=== PATIENT | female | born 1975 | race Hispanic/Latino ===

== ENCOUNTER 2017-10-17 01:53 | Inpatient (IN) | payer SELFPAY ==
[~2017-10-17] VITALS: Ht 165.1 cm; Wt 59.0 kg
[~2017-10-17 01:53] MED LIST: PNV91TAB3 PO
[2017-10-17] MEDS ORDERED: fentaNYL INJECTION 100 MCG/2 ML AMP ONE (02:08)
[2017-10-17] MEDS ORDERED: ONDANSETRON 4 MG/2 ML (SDV) Z0FRAN ONE (02:08)
[2017-10-17 02:11] LABS: BASOPHILS % (AUTO) 0 % (0-10); EOSINOPHILS % (AUTO) 1 % (0-10); LYMPHOCYTES # (AUTO) 0.3 X 10^3 (1.0-4.0); LYMPHOCYTES % (AUTO) 8 % (12-44); MEAN CORPUSCULAR HEMOGLOBIN 29 PG (25-34); MEAN CORPUSCULAR HGB CONC 34 G/DL (32-36); MEAN CORPUSCULAR VOLUME 85 FL (80-99); MEAN PLATELET VOLUME 11.1 FL (7.4-10.4); MONOCYTES % (AUTO) 1 % (0-12); NEUTROPHILS # (AUTO) 3.7 X 10^3 (1.8-7.8); NEUTROPHILS % (AUTO) 91 % (42-75); PLATELET COUNT 203 10^3/uL (130-400); RED BLOOD COUNT 4.34 10^6/uL (4.35-5.85); RED CELL DISTRIBUTION WIDTH 13.7 % (10.0-14.5); WHITE BLOOD COUNT 4.1 10^3/uL (4.3-11.0)
[2017-10-17] MEDS ORDERED: KETOROLAC 30 MG/ML VIAL ONE (02:11)
[2017-10-17] MEDS ORDERED: fentaNYL INJECTION 100 MCG/2 ML AMP IVP STA (02:12)
[2017-10-17] MEDS ORDERED: KETOROLAC 30 MG/ML VIAL IVP STA (02:12)
[2017-10-17] MEDS ORDERED: ONDANSETRON 4 MG/2 ML (SDV) Z0FRAN IVP ONE (02:15)
[2017-10-17 02:19] LABS: BILIRUBIN,URINE NEGATIVE (NEGATIVE); KETONES,URINE NEGATIVE (NEGATIVE); LEUKOCYTE ESTERASE ,URINE 1+ (NEGATIVE); NITRITE,URINE POSITIVE (NEGATIVE); PH,URINE 8 (5-9); PROTEIN,URINE 1+ (NEGATIVE); UROBILINOGEN,URINE 4 MG/DL (NORMAL)
[2017-10-17 02:24] LABS: BAND NEUTROPHILS 8 %; BASOPHILS % (MANUAL) 0 %; EOSINOPHILS % (MANUAL) 0 %; LYMPHOCYTES % (MANUAL) 6 %; NEUTROPHILS % (MANUAL) 84 %; REACTIVE LYMPHOCYTES 2 %
[2017-10-17] MEDS ORDERED: ACETAMINOPHEN 500 MG TAB (TYLENOL) PO PRN ×2 (02:30→06:00)
[2017-10-17] MEDS ORDERED: ACETAMINOPHEN 500 MG TAB (TYLENOL) ONE (02:31)
[2017-10-17 02:32] LABS: PROTHROMBIN TIME PATIENT 13.6 SEC (12.2-14.7)
[2017-10-17 02:45] LABS: ALANINE AMINOTRANSFERASE 23 U/L (0-55); ALBUMIN 4.3 GM/DL (3.2-4.5); ANION GAP 11 MMOL/L (5-14); ASPARTATE AMINO TRANSFERASE 46 U/L (5-34); BILIRUBIN,TOTAL 0.5 MG/DL (0.1-1.0); BLOOD UREA NITROGEN 12 MG/DL (7-18); BUN/CREATININE RATIO 16; CALCIUM 9.2 MG/DL (8.5-10.1); CARBON DIOXIDE 24 MMOL/L (21-32); CHLORIDE 104 MMOL/L (98-107); CREATININE SERUM 0.77 MG/DL (0.60-1.30); GFR ESTIMATED > 60; GLUCOSE 132 MG/DL (70-105); POTASSIUM 3.2 MMOL/L (3.6-5.0); SODIUM 139 MMOL/L (135-145); TOTAL PROTEIN 7.9 GM/DL (6.4-8.2)
[2017-10-17] MEDS ORDERED: cefTRIAXone INJECTION 1,000 MG in NS (IVPB) 50 ML IV ONE (03:15)
--- NOTE | 2017-10-17 03:41 | ED GU-Female ---
General Chief Complaint: Abdominal/GI Problems Stated Complaint: POSS HEART ISSUES Nursing Triage Note: Pt c/o bilateral flank pain x 1 hr. Nursing Sepsis Screen: No Definite Risk Source: patient Exam Limitations: no limitations History of Present Illness Time seen by provider: 02:15 Initial Comments Here with report of flank pain that started on the left and moved up the back. This did move around laterally to both flanks and to the belly. Reports fever and chills with this. Denies nausea or vomiting. States the pain went follow- up her back and chest at its worst. She is not sure she has a urinary tract infection. Denies nausea, vomiting, diarrhea or breathing problems. Timing/Duration: this evening, getting worse Severity/Quality: moderate, severe Location: left flank Radiation: back, right flank Activities at Onset: none Prior Genitourinary Problems: none Modifying Factors: Worsens With Movement Associated Symptoms: abdominal pain, dysuria, fever/chills, No loss of bladder control, lower back pain, No nausea/vomiting Allergies and Home Medications Allergies Coded Allergies: No Known Drug Allergies (Verified Allergy, Unknown, 04/17/09) Home Medications Pnv95/Ferrous Fumarate/FA 1 Each Tablet, 1 EACH PO, (Reported) Constitutional: see HPI, No chills, No fever EENTM: no symptoms reported Respiratory: no symptoms reported Cardiovascular: no symptoms reported Gastrointestinal: abdominal pain, No nausea, No vomiting Genitourinary: see HPI : No Musculoskeletal: see HPI, back pain Skin: no symptoms reported All Other Systemes Reviewed Negative Unless Noted: Yes Past Kynxrfl-Xhntpy-Argitm Hx Patient Social History Alcohol Use: Denies Use Recreational Drug Use: No Smoking Status: Never a Smoker Recent Foreign Travel: No Contact w/Someone Who Travel: No Recent Infectious Disease Expo: No Recent Hopitalizations: No Physical Abuse: No Sexual Abuse: No Mistreated: No Fear: No Immunizations Up To Date Tetanus Booster (TDap): Less than 5yrs PED Vaccines UTD: No Seasonal Allergies Seasonal Allergies: No Surgeries History of Surgeries: No Respiratory History of Respiratory Disorde: No Cardiovascular History of Cardiac Disorders: No Neurological History of Neurological Disord: No Reproductive System Hx Reproductive Disorders: No HIV/AIDS: No Gastrointestinal History of Gastrointestinal Di: No Musculoskeletal History of Musculoskeletal Dis: No Endocrine History of Endocrine Disorders: No Cancer History of Cancer: No Psychosocial History of Psychiatric Problem: No Suicide Risk Score: 1 Integumentary History of Skin or Integumenta: No Blood Transfusions History of Blood Disorders: No Adverse Reaction to a Blood Tr: No Reviewed Nursing Assessment Reviewed/Agree w Nursing PMH: Yes Family Medical History Significant Family History: No Pertinent Family Hx Family Medial History: Patient reports no known family medical history. Physical Exam Vital Signs Vital Sign - Last 12Hours 10/17/17 01:55 Temp 101.6 Pulse 86 Resp 20 B/P (MAP) 115/94 (101) Pulse Ox 99 O2 Delivery Room Air Capillary Refill : Less Than 3 Seconds General Appearance: WD/WN, moderate distress HEENT: PERRL/EOMI, pharynx normal Neck: full range of motion, supple Cardiovascular: regular rate, rhythm, no murmur Respiratory: lungs clear, normal breath sounds Gastrointestinal: non tender, soft Back: normal inspection, no CVA tenderness, no vertebral tenderness Extremities: non-tender, normal inspection Neurologic/Psychiatric: alert, normal mood/affect Skin: normal color, warm/dry Focused Exam Evaluation Lactate Level Laboratory Tests 10/17/17 02:25: Lactic Acid Level 1.19 Lactic Acid Level Laboratory Tests Test 10/17/17 02:25 Lactic Acid Level 1.19 MMOL/L (0.50-2.00) Progress/Results/Core Measures Suspected Sepsis Recent Fever Within 48 Hours: No Infection Criteria Present: None New/Unexplained Altered Menta: No Sepsis Screen: No Definite Risk Sepsis Diagnosis: SIRS Temperature:101.6 Pulse: 86 Respiratory Rate: 20 Laboratory Tests 10/17/17 02:00: White Blood Count 4.1L Blood Pressure 115 /94 Mean: 101 Laboratory Tests 10/17/17 02:25: Lactic Acid Level 1.19 Laboratory Tests 10/17/17 02:00: Creatinine 0.77, INR Comment 1.0, Platelet Count 203, Total Bilirubin 0.5 Results/Orders Lab Results Laboratory Tests Test 10/17/17 02:00 10/17/17 02:25 Range/Units White Blood Count 4.1 L 4.3-11.0 10^3/uL Red Blood Count 4.34 L 4.35-5.85 10^6/uL Hemoglobin 12.4 11.5-16.0 G/DL Hematocrit 37 35-52 % Mean Corpuscular Volume 85 80-99 FL Mean Corpuscular Hemoglobin 29 25-34 PG Mean Corpuscular Hemoglobin Concent 34 32-36 G/DL Red Cell Distribution Width 13.7 10.0-14.5 % Platelet Count 203 130-400 10^3/uL Mean Platelet Volume 11.1 H 7.4-10.4 FL Neutrophils (%) (Auto) 91 H 42-75 % Lymphocytes (%) (Auto) 8 L 12-44 % Monocytes (%) (Auto) 1 0-12 % Eosinophils (%) (Auto) 1 0-10 % Basophils (%) (Auto) 0 0-10 % Neutrophils # (Auto) 3.7 1.8-7.8 X 10^3 Lymphocytes # (Auto) 0.3 L 1.0-4.0 X 10^3 Monocytes # (Auto) 0.0 0.0-1.0 X 10^3 Eosinophils # (Auto) 0.0 0.0-0.3 10^3/uL Basophils # (Auto) 0.0 0.0-0.1 10^3/uL Neutrophils % (Manual) 84 % Lymphocytes % (Manual) 6 % Monocytes % (Manual) 0 % Eosinophils % (Manual) 0 % Basophils % (Manual) 0 % Band Neutrophils 8 % Reactive Lymphocytes 2 % Toxic Granulation 1+ Elliptocytes MODERATE Prothrombin Time 13.6 12.2-14.7 SEC INR Comment 1.0 0.8-1.4 Activated Partial Thromboplast Time 25 24-35 SEC Urine Color YELLOW Urine Clarity SLIGHTLY CLOUDY Urine pH 8 5-9 Urine Specific [place] 1.010 L 1.016-1.022 Urine Protein 1+ H NEGATIVE Urine Glucose (UA) NEGATIVE NEGATIVE Urine Ketones NEGATIVE NEGATIVE Urine Nitrite POSITIVE H NEGATIVE Urine Bilirubin NEGATIVE NEGATIVE Urine Urobilinogen 4 H NORMAL MG/DL Urine Leukocyte Esterase 1+ H NEGATIVE Urine RBC (Auto) 3+ H NEGATIVE Urine RBC 2-5 H /HPF Urine WBC 2-5 /HPF Urine Squamous Epithelial Cells 2-5 /HPF Urine Crystals NONE /LPF Urine Bacteria LARGE H /HPF Urine Casts NONE /LPF Urine Mucus NEGATIVE /LPF Urine Culture Indicated YES Sodium Level 139 135-145 MMOL/L Potassium Level 3.2 L 3.6-5.0 MMOL/L Chloride Level 104 98-107 MMOL/L Carbon Dioxide Level 24 21-32 MMOL/L Anion Gap 11 5-14 MMOL/L Blood Urea Nitrogen 12 7-18 MG/DL Creatinine 0.77 0.60-1.30 MG/DL Estimat Glomerular Filtration Rate > 60 BUN/Creatinine Ratio 16 Glucose Level 132 H 70-105 MG/DL Calcium Level 9.2 8.5-10.1 MG/DL Total Bilirubin 0.5 0.1-1.0 MG/DL Aspartate Amino Transf (AST/SGOT) 46 H 5-34 U/L Alanine Aminotransferase (ALT/SGPT) 23 0-55 U/L Alkaline Phosphatase 87 40-136 U/L Total Protein 7.9 6.4-8.2 GM/DL Albumin 4.3 3.2-4.5 GM/DL Lactic Acid Level 1.19 0.50-2.00 MMOL/L My Orders Orders - ZULY JACKMAN MD Cbc With Automated Diff (10/17/17 02:03) Comprehensive Metabolic Panel (10/17/17 02:03) Ua Culture If Indicated (10/17/17 02:03) Urine Bedside (10/17/17 02:06) Saline Lock/Iv-Start (10/17/17 02:06) Fentanyl Injection (Sublimaze Injection (10/17/17 02:08) Ondansetron Injection (Zofran Injectio (10/17/17 02:08) Ondansetron Injection (Zofran Injectio (10/17/17 02:15) Fentanyl Injection (Sublimaze Injection (10/17/17 02:12) Ketorolac Injection (Toradol Injection) (10/17/17 02:12) Manual Differential (10/17/17 02:00) Ketorolac Injection (Toradol Injection) (10/17/17 02:11) Urine Culture (10/17/17 02:00) Lactic Acid Analyzer (10/17/17 02:21) Blood Culture (10/17/17 02:21) Sputum Culture (10/17/17 02:21) Protime With Inr (10/17/17 02:21) Partial Thromboplastin Time (10/17/17 02:21) Chest 1 View, Ap/Pa Only (10/17/17 02:21) O2 (10/17/17 02:21) Acetaminophen Tablet (Tylenol Tablet) (10/17/17 02:30) Vital Signs Adult Sepsis Patie Q1H (10/17/17 02:21) Remove Rings In Anticipation O (10/17/17 02:21) Acetaminophen Tablet (Tylenol Tablet) (10/17/17 02:31) Ct Abd/Pelvis Wo(Kidney Stone) (10/17/17 03:05) Ceftriaxone Injection (Rocephin Injectio (10/17/17 03:15) Medications Given in ED Current Medications Medications Dose Ordered Sig/Dionicio Route Start Time Stop Time Status Last Admin Dose Admin Acetaminophen 1,000 mg ONCE PRN PO 10/17/17 02:30 10/17/17 02:30 DC 10/17/17 02:26 1,000 MG Ondansetron HCl 4 mg ONCE ONCE IVP 10/17/17 02:15 10/17/17 02:16 DC 10/17/17 02:14 4 MG Vital Signs/I&O Vital Sign - Last 12Hours 10/17/17 01:55 Temp 101.6 Pulse 86 Resp 20 B/P (MAP) 115/94 (101) Pulse Ox 99 O2 Delivery Room Air Capillary Refill : Less Than 3 Seconds Blood Pressure Mean: 101 Point of Care Testing Urine -Bedside: Negative Progress Note : Progress Note Seen and evaluated. IV, labs, UA, normal saline 1 L bolus, fentanyl 75 g IV and Toradol 30 mg IV ordered. Monitor patient. Patient noted to have fever. Tylenol 1 g by mouth ordered and sepsis protocol ordered. UA grossly positive. 0310: CT abdomen and pelvis kidney stone protocol ordered. Rocephin 1 g IV ordered. Monitor patient. 0417: I did discuss the case with Dr. Luciano. She accepts patient for admission, inpatient status for UTI concerns of pyelonephritis. Patient did receive antibiotics. No indication of high volume fluid resuscitation. CT results as noted below. Patient agrees with plan. Diagnostic Imaging Diagonstic Imaging: CT Plain Films/CT/US/NM/MRI: abdomen, pelvis Comments No definite radiopaque renal calculus. 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 Recommend clinical correlation. Small free fluid in the pelvis, nonspecific. Reviewed: Reviewed [place] Study, Reviewed by Me Diagonstic Imaging: Xray Plain Films/CT/US/NM/MRI: chest Comments No acute findings Reviewed: Reviewed by Me Departure Communication (Admissions) Time/Spoke to Admitting Phy: 04:17 Impression Impression: Primary Impression: Urinary tract infection Qualified Codes: N30.00 - Acute cystitis without hematuria Additional Impression: Pyelonephritis Disposition: 09 ADMITTED INPATIENT Condition: Stable Admissions Decision to Admit Reason: Admit from ER (General) Decision to Admit/Date: Oct 17, 2017 Time/Decision to Admit Time: 04:17 ZULY JACKMAN MD Oct 17, 2017 03:41
--- OUTSIDE RECORDS SUMMARY | 2017-10-17 04:37 | XMS REPORT ---
Author MARILEE Stevens [facility] eClinicalWorks Address Unknown Phone Unavailable Care Team Providers Care Water Supervisor Name Role Phone MARILEE CARRASCO CP Unavailable Allergies No Known Allergies Problems Problem Type Condition Code Onset Dates Condition Status Problem Elderly multigravida in third trimester O09.523 Active Problem Abnormal quad screen O28.0 Active Problem Hx of herpes genitalis Z86.19 Active Assessment Elderly multigravida in third trimester O09.523 Active Assessment 38 weeks gestation of Z3A.38 Active Problem Elderly multigravida, second trimester O09.522 Active Problem Elderly multigravida, first trimester O09.521 Active Medications Medication Code System Code Instructions Start Date End Date Status Dosage Triamcinolone Acetonide [facility] [address]-68 0.1 % Externally Twice a day PRN March 16, 2016 1 application to affected area [facility] [address] Orally Once a day 1 tablet Procedures Procedure Coding System Code Date Office Visit, Est Pt., Level 3 CPT-4 72989 Jun 15, 2016 Vital Signs Date/Time: Jun 15, 2016 Cardiac Monitoring Heart Rate 76 bpm Weight 148.8 lbs Height 63 in BMI 26.359 Index Blood Pressure Diastolic 69 mmHg Blood Pressure Systolic 122 mmHg Results No Known Results Summary Purpose eClinicalWorks Submission
--- OUTSIDE RECORDS SUMMARY | 2017-10-17 04:37 | XMS REPORT ---
Author MARILEE Stevens [facility] eClinicalWorks Address Unknown Phone Unavailable Care Team Providers Care Hot Mix Operator Name Role Phone MARILEE CARRASCO Unavailable Allergies No Known Allergies Problems Problem Type Condition Code Onset Dates Condition Status Problem Elderly multigravida in third trimester O09.523 Active Problem Abnormal quad screen O28.0 Active Problem Hx of herpes genitalis Z86.19 Active Assessment Encounter for immunization Z23 Active Problem Elderly multigravida, second trimester O09.522 Active Problem Elderly multigravida, first trimester O09.521 Active Medications No Known Medications Procedures Procedure Coding System Code Date SINGLE IMMUNIZATION ADMIN CPT-4 84319 Aug 28, 2016 FLUARIX QUAD P-FREE 3 AND UP .50 2015 CPT-4 33521 Aug 28, 2016 Results No Known Results Immunizations Vaccine Administration Date FLUARIX QUAD P-FREE 3 AND UP .50 2015Aug 28, 2016 Summary Purpose Patient Engagement SystemsinicalWorks Submission
--- OUTSIDE RECORDS SUMMARY | 2017-10-17 04:37 | XMS REPORT ---
Author MARILEE Stevens [facility] eClinicalWorks Address Unknown Phone Unavailable Care Team Providers Care Clipping Marker Name Role Phone MARILEE CARRASCO Unavailable Allergies No Known Allergies Problems Problem Type Condition Code Onset Dates Condition Status Problem Abnormal quad screen O28.0 Active Problem Elderly multigravida, second trimester O09.522 Active Problem Elderly multigravida in third trimester O09.523 Active Assessment 34 weeks gestation of Z3A.34 Active Problem Elderly multigravida, first trimester O09.521 Active Assessment Elderly multigravida in third trimester O09.523 Active Medications Medication Code System Code Instructions Start Date End Date Status Dosage Triamcinolone Acetonide [facility] [address]-87 0.1 % Externally Twice a day PRN March 16, 2016 1 application to affected area [facility] [address] Orally Once a day 1 tablet Procedures Procedure Coding System Code Date Office Visit, Est Pt., Level 3 CPT-4 84435 May 20, 2016 URINE-NO MICRO CPT-4 45920 May 20, 2016 Vital Signs Date/Time: May 20, 2016 Cardiac Monitoring Heart Rate 76 bpm Weight 146.1 lbs Height 63 in Blood Pressure Diastolic 68 mmHg Blood Pressure Systolic 102 mmHg Results No Known Results Summary Purpose eClinicalWorks Submission
--- OUTSIDE RECORDS SUMMARY | 2017-10-17 04:37 | XMS REPORT ---
Author MARILEE Stevens eClinicalWorks Address Unknown Phone Unavailable Care Team Providers Care Income Tax Adjuster Name Role Phone MARILEE CARRASCO CP Unavailable Allergies, Adverse Reactions, Alerts Substance Reaction Event Type N.K.D.A. Info Not Available Non Drug Allergy Problems Problem Type Condition Code Onset Dates Condition Status Assessment Elderly multigravida, first trimester O09.521 Active Assessment 11 weeks gestation of Z3A.11 Active Problem Elderly multigravida, first trimester O09.521 Active Medications Medication Code System Code Instructions Start Date End Date Status Dosage [facility] [address] Orally Once a day 1 tablet Procedures Procedure Coding System Code Date URINE CULTURE/COLONY COUNT CPT-4 16440 Dec 09, 2015 Office Visit, Est Pt., Level 3 CPT-4 77099 Dec 09, 2015 URINALYSIS, AUTO, W/O SCOPE CPT-4 03033 Dec 09, 2015 Vital Signs Date/Time: Dec 09, 2015 Temperature 98.7 F Weight 130.9 lbs Height 63 in BMI 23.188 Index Blood Pressure Diastolic 72 mmHg Blood Pressure Systolic 112 mmHg Cardiac Monitoring Heart Rate 70 bpm Results Name Result Date Reference Range Unit Abnormality Flag UA LONG DIP (IN HOUSE) ----ANIKET trace 20151209 ----NIT negative 20151209 ----SG 1.020 20151209 ----KET negative 20151209 ----TAVIA negative 20151209 ----GLU negative 20151209 ----Odor no 20151209 ----pH 7.5 20151209 ----BLO negative 20151209 ----URO 0.2 20151209 ----Protein negative 20151209 ----Lot # [id number] 20151209 ----Exp date 20151209 ----Clarity cloudy 20151209 ----Color yellow 20151209 CULTURE, URINE ----Urine Culture, Routine Final report [id number] A Summary Purpose [facility] Submission
--- OUTSIDE RECORDS SUMMARY | 2017-10-17 04:37 | XMS REPORT ---
Author MARILEE Stevens [facility] eClinicalWorks Address Unknown Phone Unavailable Care Team Providers Care Spout Worker Name Role Phone MARILEE CARRASCO Unavailable Allergies No Known Allergies Problems Problem Type Condition Code Onset Dates Condition Status Problem Elderly multigravida in third trimester O09.523 Active Problem Abnormal quad screen O28.0 Active Problem Hx of herpes genitalis Z86.19 Active Assessment Elderly multigravida in third trimester O09.523 Active Assessment 39 weeks gestation of Z3A.39 Active Problem Elderly multigravida, second trimester O09.522 Active Problem Elderly multigravida, first trimester O09.521 Active Medications Medication Code System Code Instructions Start Date End Date Status Dosage [facility] [address] Orally Once a day 1 tablet Procedures Procedure Coding System Code Date Office Visit, Est Pt., Level 3 CPT-4 50337 Jun 22, 2016 Vital Signs Date/Time: Jun 22, 2016 Blood Pressure Systolic 116 mmHg Weight 149.0 lbs Height 63 in BMI 26.394 Index Blood Pressure Diastolic 70 mmHg Results No Known Results Summary Purpose eClinicalWorks Submission
--- OUTSIDE RECORDS SUMMARY | 2017-10-17 04:37 | XMS REPORT ---
Author Author EDGAR MACHADO Organization eClinicalWorks Address Unknown Phone Unavailable Care Team Providers Care Concrete Mixing Plant Superintendent Name Role Phone EDGAR MACHADO CP Unavailable Allergies No Known Allergies Problems Problem Type Condition Code Onset Dates Condition Status Problem Elderly multigravida in third trimester O09.523 Active Problem Abnormal quad screen O28.0 Active Problem Hx of herpes genitalis Z86.19 Active Assessment Verruca B07.9 Active Problem Elderly multigravida, second trimester O09.522 Active Problem Elderly multigravida, first trimester O09.521 Active Medications No Known Medications Procedures Procedure Coding System Code Date Office Visit, Est Pt., Level 3 CPT-4 79135 Aug 28, 2016 DESTRUCT LESION, 1-14 CPT-4 41577 Aug 28, 2016 Results Name Result Date Reference Range Unit Abnormality Flag LESION DESTRUCTION 1-14 (BENIGN) Summary Purpose eClinicalWorks Submission
--- OUTSIDE RECORDS SUMMARY | 2017-10-17 04:37 | XMS REPORT ---
Author JOHN Suh [facility] eClinicalWorks Address Unknown Phone Unavailable Care Team Providers Care Commercial Sales Consultant Name Role Phone JOHN WILSON CP Unavailable Allergies, Adverse Reactions, Alerts Substance Reaction Event Type N.K.D.A. Info Not Available Non Drug Allergy Problems Problem Type Condition Code Onset Dates Condition Status Problem Elderly multigravida in third trimester O09.523 Active Problem Abnormal quad screen O28.0 Active Problem Hx of herpes genitalis Z86.19 Active Assessment Dental examination Z01.20 Active Problem Elderly multigravida, second trimester O09.522 Active Problem Elderly multigravida, first trimester O09.521 Active Medications Medication Code System Code Instructions Start Date End Date Status Dosage [facility] [address] Orally Once a day 1 tablet Procedures Procedure Coding System Code Date BITEWINGS - FOUR FILMS CPT-4 D0274 Jun 15, 2016 PANORAMIC FILM SEE ALSO CODE 44229 CPT-4 D0330 Jun 15, 2016 COMP ORAL EVALUATION - NEW/EST PT CPT-4 D0150 Jun 15, 2016 Billing Notes on claim CPT-4 EC109 Jun 15, 2016 Vital Signs Date/Time: Jun 15, 2016 Blood Pressure Diastolic 75 mmHg Blood Pressure Systolic 106 mmHg Height 63 in Results No Known Results Summary Purpose eClinicalWorks Submission
--- OUTSIDE RECORDS SUMMARY | 2017-10-17 04:37 | XMS REPORT ---
Author Author ZAKI JAUREGUI Organization eClinicalWorks Address Unknown Phone Unavailable Care Team Providers Care Registration Clerk Name Role Phone ZAKI JAUREGUI CP Unavailable Allergies, Adverse Reactions, Alerts Substance Reaction Event Type N.K.D.A. Info Not Available Non Drug Allergy Problems Problem Type Condition Code Onset Dates Condition Status Problem Elderly multigravida in third trimester O09.523 Active Problem Abnormal quad screen O28.0 Active Problem Hx of herpes genitalis Z86.19 Active Assessment Encounter for dental examination and cleaning without abnormal findings Z01.20 Active Problem Elderly multigravida, second trimester O09.522 Active Problem Elderly multigravida, first trimester O09.521 Active Medications Medication Code System Code Instructions Start Date End Date Status Dosage [facility] [address]67 Orally Once a day 1 tablet Acyclovir [facility] [address]-97 400 mg po BID Sep 28, 2013 1 tablet by Oral route 3 times per day for 5 day(s) Triamcinolone Acetonide [facility] [address]-78 0.1 % Externally Twice a day PRN March 16, 2016 1 application to affected area Procedures Procedure Coding System Code Date Billing Notes on claim CPT-4 EC109 Jun 15, 2016 Full mouth debridement CPT-4 D4355 Jun 15, 2016 Vital Signs Date/Time: Jun 15, 2016 Blood Pressure Diastolic 75 mmHg Blood Pressure Systolic 106 mmHg Height 63 in Results No Known Results Summary Purpose eClinicalWorks Submission
--- OUTSIDE RECORDS SUMMARY | 2017-10-17 04:37 | XMS REPORT ---
Author MARILEE Stevens [facility] eClinicalWorks Address Unknown Phone Unavailable Care Team Providers Care Commercial Roofing Estimator Name Role Phone MARILEE CARRASCO Unavailable Allergies No Known Allergies Problems Problem Type Condition Code Onset Dates Condition Status Problem Elderly multigravida, first trimester O09.521 Active Medications Medication Code System Code Instructions Start Date End Date Status Dosage Macrobid [facility] [address]-64 100 MG Orally 2 times a day Dec 16, 2015Dec 1 capsule with food Results No Known Results Summary Purpose eClinicalWorks Submission
--- OUTSIDE RECORDS SUMMARY | 2017-10-17 04:37 | XMS REPORT ---
Author MARILEE Stevens [facility] eClinicalWorks Address Unknown Phone Unavailable Care Team Providers Care Pattern Clerk Name Role Phone MARILEE CARRASCO CP Unavailable Allergies, Adverse Reactions, Alerts Substance Reaction Event Type N.K.D.A. Info Not Available Non Drug Allergy Problems Problem Type Condition Code Onset Dates Condition Status Problem Elderly multigravida, second trimester O09.522 Active Problem Elderly multigravida, first trimester O09.521 Active Problem Abnormal quad screen O28.0 Active Assessment Flexural eczema L20.82 Active Assessment Elderly multigravida, second trimester O09.522 Active Assessment 24 weeks gestation of Z3A.24 Active Medications Medication Code System Code Instructions Start Date End Date Status Dosage [facility] [address] Orally Once a day 1 tablet Triamcinolone Acetonide [facility] [address]-61 0.1 % Externally Twice a day prn March 09, 2016 1 application to affected area Procedures Procedure Coding System Code Date Office Visit, Est Pt., Level 3 CPT-4 32461 March 09, 2016 URINE-NO MICRO CPT-4 71768 March 09, 2016 Vital Signs Date/Time: March 09, 2016 Temperature 98.8 F Weight 138.8 lbs Height 63 in BMI 24.587 Index Blood Pressure Diastolic 64 mmHg Blood Pressure Systolic 106 mmHg Cardiac Monitoring Heart Rate 76 bpm Results Name Result Date Reference Range Unit Abnormality Flag UA OB DIP (IN HOUSE) ----Glucose negative 20160309 ----Protein negative [id number] Summary Purpose eClinicalWorks Submission
--- OUTSIDE RECORDS SUMMARY | 2017-10-17 04:37 | XMS REPORT ---
Author MARILEE Stevens [facility] eClinical[employer] Address Unknown Phone Unavailable Care Team Providers Care Pharmacy Sales Representative Name Role Phone MARILEE CARRASCO CP Unavailable Allergies No Known Allergies Problems Problem Type Condition Code Onset Dates Condition Status Assessment Hx of herpes genitalis Z86.19 Active Problem Elderly multigravida in third trimester O09.523 Active Problem Abnormal quad screen O28.0 Active Problem Hx of herpes genitalis Z86.19 Active Assessment screening for streptococcus B Z36 Active Assessment Elderly multigravida in third trimester O09.523 Active Problem Elderly multigravida, second trimester O09.522 Active Problem Elderly multigravida, first trimester O09.521 Active Medications Medication Code System Code Instructions Start Date End Date Status Dosage Triamcinolone Acetonide [facility] [address]-47 0.1 % Externally Twice a day PRN March 16, 2016 1 application to affected area [facility] [address]00-[address]21 Orally Once a day 1 tablet Acyclovir [facility] [address]-67 400 mg po BID Sep 28, 2013 1 tablet by Oral route 3 times per day for 5 day(s) Procedures Procedure Coding System Code Date Office Visit, Est Pt., Level 3 CPT-4 15569 June 03, 2016 URINE-NO MICRO CPT-4 42471 June 03, 2016 DETECT AGNT MULT, DNA, AMPLI CPT-4 23052 June 03, 2016 Vital Signs Date/Time: June 03, 2016 Cardiac Monitoring Heart Rate 77 bpm Weight 150.0 lbs Height 63 in BMI 26.57 Index Blood Pressure Diastolic 68 mmHg Blood Pressure Systolic 121 mmHg Results No Known Results Summary Purpose eClinicalWorks Submission
--- OUTSIDE RECORDS SUMMARY | 2017-10-17 04:37 | XMS REPORT ---
Author Author EDGAR MACHADO Organization e[employer] Address Unknown Phone Unavailable Care Team Providers Care Sole Ruffer Name Role Phone EDGAR MACHADO CP Unavailable Allergies No Known Allergies Problems Problem Type Condition Code Onset Dates Condition Status Problem Elderly multigravida, second trimester O09.522 Active Problem Elderly multigravida, first trimester O09.521 Active Problem Abnormal quad screen O28.0 Active Assessment Verruca B07.9 Active Medications No Known Medications Procedures Procedure Coding System Code Date Office Visit, Est Pt., Level 3 CPT-4 16439 May 01, 2016 DESTRUCT LESION, 1-14 CPT-4 65714 May 01, 2016 Vital Signs Date/Time: May 01, 2016 Blood Pressure Diastolic 60 mmHg Blood Pressure Systolic 92 mmHg Height 63 in Results No Known Results Summary Purpose eClinicalWorks Submission
--- OUTSIDE RECORDS SUMMARY | 2017-10-17 04:38 | XMS REPORT | Continuity of Care Document ---
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 08/16/2008 CARRASCO DO, MARILEE K V72.42 TEST POSITIVE RESULT 08/16/2008 CARRASCO DO, MARILEE K 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.0 ABSENCE OF MENSTRUATION 08/16/2008 CARRASCO DO, MARILEE K V72.42 TEST POSITIVE RESULT 08/16/2008 CARRASCO DO, MARILEE K 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.0 ABSENCE OF MENSTRUATION 08/16/2008 CARRASCO DO, MARILEE K V72.42 TEST POSITIVE RESULT 08/16/2008 MAGY LOUVER MORTISER OPERATOR, VELMA A 626.0 ABSENCE OF MENSTRUATION 08/16/2008 MAGY LOUVER MORTISER OPERATOR, VELMA A V72.42 TEST POSITIVE RESULT 08/16/2008 MAGY LOUVER MORTISER OPERATOR, VELMA A 626.0 ABSENCE OF MENSTRUATION 08/16/2008 MAGY LOUVER MORTISER OPERATOR, VELMA A V72.42 TEST POSITIVE RESULT 08/16/2008 CARRASCO DO, MARILEE K 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 ABSENCE OF MENSTRUATION 08/16/2008 CARRASCO DO, MARILEE K V72.42 TEST POSITIVE RESULT 08/16/2008 CARRASCO DO, MARILEE K 626.0 ABSENCE OF MENSTRUATION 08/16/2008 CARRASCO DO, MARILEE K V72.42 TEST POSITIVE RESULT 08/16/2008 CATALINA MCGINNIS APRN 626.0 ABSENCE OF MENSTRUATION 08/16/2008 CATALINA MCGINNIS APRN V72.42 TEST POSITIVE RESULT 11/21/2008 V22.1 PC OTHER NORMAL 11/21/2008 V74.5 SCREENING EXAMINATION FOR VENEREAL DISEASE 11/21/2008 CARRASCO DO, MARILEE K V22.1 PC OTHER NORMAL 11/21/2008 CARRASCO DO, MARILEE K V74.5 SCREENING EXAMINATION FOR VENEREAL DISEASE 11/21/2008 CARRASCO DO, MARILEE K V22.1 PC OTHER NORMAL 11/21/2008 CARRASCO DO, MARILEE K V74.5 SCREENING EXAMINATION FOR VENEREAL DISEASE 11/21/2008 CARRASCO DO, MARILEE K V22.1 PC OTHER NORMAL 11/21/2008 CARRASCO DO, MARILEE K V74.5 SCREENING EXAMINATION FOR VENEREAL DISEASE 11/21/2008 CARRASCO DO, MARILEE K V22.1 PC OTHER NORMAL 11/21/2008 CARRASCO DO, MARILEE K V74.5 SCREENING EXAMINATION FOR VENEREAL DISEASE 11/21/2008 MAGY LOUVER MORTISER OPERATOR, VELMA A V22.1 PC OTHER NORMAL 11/21/2008 MAGY LOUVER MORTISER OPERATOR, VELMA A V74.5 SCREENING EXAMINATION FOR VENEREAL DISEASE 11/21/2008 MAGY LOUVER MORTISER OPERATOR, VELMA A V22.1 PC OTHER NORMAL 11/21/2008 MAGY LOUVER MORTISER OPERATOR, VELMA A V74.5 SCREENING EXAMINATION FOR VENEREAL DISEASE 11/21/2008 CARRASCO DO, MARILEE K V22.1 PC OTHER NORMAL 11/21/2008 CARRASCO DO, MARILEE K V74.5 SCREENING EXAMINATION FOR VENEREAL DISEASE 11/21/2008 CARRASCO DO, MARILEE K V22.1 PC OTHER NORMAL 11/21/2008 CARRASCO DO, MARILEE K V74.5 SCREENING EXAMINATION FOR VENEREAL DISEASE 11/21/2008 CATALINA MCGINNIS APRN T V22.1 PC OTHER NORMAL 11/21/2008 CATALINA MCGINNIS APRN V74.5 SCREENING EXAMINATION FOR VENEREAL DISEASE 03/01/2009 648.20 COMPL OF - ANEMIA 03/01/2009 CARRASCO DO, MARILEE K 648.20 COMPL OF - ANEMIA 03/01/2009 CARRASCO DO, MARILEE K 648.20 COMPL OF - ANEMIA 03/01/2009 CARRASCO DO, MARILEE K 648.20 COMPL OF - ANEMIA 03/01/2009 CARRASCO DO, MARILEE K 648.20 COMPL OF - ANEMIA 03/01/2009 MAGY LOUVER MORTISER OPERATOR, VELMA A 648.20 COMPL OF - ANEMIA 03/01/2009 MAGYVELMA ANGELA APRN A 648.20 COMPL OF - ANEMIA 03/01/2009 MARILEE CARRASCO DO 648.20 COMPL OF - ANEMIA 03/01/2009 MARILEE CARRASCO DO 648.20 COMPL OF - ANEMIA 03/01/2009 CATALINA MCGINNIS APRN She 648.20 COMPL OF - ANEMIA 07/01/2009 V24.2 visit for: exam 07/01/2009 V25.49 Gynecologic Service Prescrip Of Contracept Agent - Repeat Rx 07/01/2009 MARILEE CARRASCO DO V24.2 visit for: exam 07/01/2009 MARILEE CARRASCO DO V25.49 Gynecologic Service Prescrip Of Contracept Agent - Repeat Rx 07/01/2009 MARILEE CARRASCO DO V24.2 visit for: exam 07/01/2009 MARILEE CARRASCO DO V25.49 Gynecologic Service Prescrip Of Contracept Agent - Repeat Rx 07/01/2009 MARILEE CARRASCO DO V24.2 visit for: exam 07/01/2009 MARILEE CARRASCO DO V25.49 Gynecologic Service Prescrip Of Contracept Agent - Repeat Rx 07/01/2009 MARILEE CARRASCO DO V24.2 visit for: exam 07/01/2009 MARILEE CARRASCO DO V25.49 Gynecologic Service Prescrip Of Contracept Agent - Repeat Rx 07/01/2009 VELMA BHATTI APRN A V24.2 visit for: exam 07/01/2009 VELMA BHATTI APRN A V25.49 Gynecologic Service Prescrip Of Contracept Agent - Repeat Rx 07/01/2009 CARLEEN BHATTI APRNIDI A V24.2 visit for: exam 07/01/2009 CARLEEN BHATTI APRNIDI A V25.49 Gynecologic Service Prescrip Of Contracept Agent - Repeat Rx 07/01/2009 MARILEE CARRASCO DO V24.2 visit for: exam 07/01/2009 MARILEE CARRASCO DO V25.49 Gynecologic Service Prescrip Of Contracept Agent - Repeat Rx 07/01/2009 MARILEE CARRASCO DO V24.2 visit for: exam 07/01/2009 MARILEE CARRASCO DO V25.49 Gynecologic Service Prescrip Of Contracept Agent - Repeat Rx 07/01/2009 CATALINA MCGINNIS APRN V24.2 visit for: exam 07/01/2009 CATALINA MCGINNIS APRN V25.49 Gynecologic Service Prescrip Of Contracept Agent - Repeat Rx 08/08/2009 054.10 HERPES SIMPLEX TYPE II 08/08/2009 MARILEE CARRASCO DO K 054.10 HERPES SIMPLEX TYPE II 08/08/2009 CARRASCO DO MARILEE K 054.10 HERPES SIMPLEX TYPE II 08/08/2009 CARRASCO DO MARILEE K 054.10 HERPES SIMPLEX TYPE II 08/08/2009 CARRASCO DO, MARILEE K 054.10 HERPES SIMPLEX TYPE II 08/08/2009 MAGY HOLLAND, VELMA A 054.10 HERPES SIMPLEX TYPE II 08/08/2009 MAGYZacarias LINO VELMA A 054.10 HERPES SIMPLEX TYPE II 08/08/2009 CARRASCO DO MARILEE K 054.10 HERPES SIMPLEX TYPE II 08/08/2009 CARRASCO DO MARILEE K 054.10 HERPES SIMPLEX TYPE II 08/08/2009 CATALINA MCGINNIS APRN 054.10 HERPES SIMPLEX TYPE II 11/18/2009 786.50 Chest Pain 11/18/2009 V25.41 visit for: contraceptive surveillance pill 11/18/2009 DANILO SALGUERO MARILEE K 786.50 Chest Pain 11/18/2009 DANILO SALGUERO MARILEE K V25.41 visit for: contraceptive surveillance pill 11/18/2009 DANILO SALGUERO MARILEE K 786.50 Chest Pain 11/18/2009 CARRASCO DO MARILEE K V25.41 visit for: contraceptive surveillance pill 11/18/2009 DANILO SALGUERO MARILEE K 786.50 Chest Pain 11/18/2009 DANILO SALGUERO MARILEE K V25.41 visit for: contraceptive surveillance pill 11/18/2009 DANILO SALGUERO MARILEE K 786.50 Chest Pain 11/18/2009 CARRASCO DO MARLIEE K V25.41 visit for: contraceptive surveillance pill 11/18/2009 MAGY HOLLAND VELMA A 786.50 Chest Pain 11/18/2009 MAGYZacarias LINO VELMA A V25.41 visit for: contraceptive surveillance pill 11/18/2009 MAGYZacarias LINO VELMA A 786.50 Chest Pain 11/18/2009 MAGY LINO VELMA A V25.41 visit for: contraceptive surveillance pill 11/18/2009 CARRASCO DO, MARILEE K 786.50 Chest Pain 11/18/2009 CARRASCO DO, MARILEE K V25.41 visit for: contraceptive surveillance pill 11/18/2009 CARRASCO DO, MARILEE K 786.50 Chest Pain 11/18/2009 CARRASCO DO, MARILEE K V25.41 visit for: contraceptive surveillance pill 11/18/2009 CATALINA MCGINNIS APRN 786.50 Chest Pain 11/18/2009 CATALINA MCGINNIS APRN V25.41 visit for: contraceptive surveillance pill 02/12/2010 V25.40 CONTRACEPTIVE SURVEILLANCE UNSPECIFIED 02/12/2010 CARRASCO DO, MARILEE K V25.40 CONTRACEPTIVE SURVEILLANCE UNSPECIFIED 02/12/2010 CARRASCO DO, MARILEE K V25.40 CONTRACEPTIVE SURVEILLANCE UNSPECIFIED 02/12/2010 CARRASCO DO, MARILEE K V25.40 CONTRACEPTIVE SURVEILLANCE UNSPECIFIED 02/12/2010 CARRASCO DO, MARILEE K V25.40 CONTRACEPTIVE SURVEILLANCE UNSPECIFIED 02/12/2010 MAGY LOUVER MORTISER OPERATOR, VELMA A V25.40 CONTRACEPTIVE SURVEILLANCE UNSPECIFIED 02/12/2010 MAGY LOUVER MORTISER OPERATOR, VELMA A V25.40 CONTRACEPTIVE SURVEILLANCE UNSPECIFIED 02/12/2010 CARRASCO DO, MARILEE K V25.40 CONTRACEPTIVE SURVEILLANCE UNSPECIFIED 02/12/2010 CARRASCO DO, MARILEE K V25.40 CONTRACEPTIVE SURVEILLANCE UNSPECIFIED 02/12/2010 CATALINA MCGINNIS APRN V25.40 CONTRACEPTIVE SURVEILLANCE UNSPECIFIED 03/20/2010 599.0 Urinary Tract Infection 03/20/2010 788.41 Urinary Frequency 03/20/2010 788.63 Urinary Urgency 03/20/2010 CARRASCO DO, MARILEE K 599.0 Urinary Tract Infection 03/20/2010 CARRASCO DO, MARILEE K 788.41 Urinary Frequency 03/20/2010 CARRASCO DO, MARILEE K 788.63 Urinary Urgency 03/20/2010 CARRASCO DO, MARILEE K 599.0 Urinary Tract Infection 03/20/2010 CARRASCO DO, MARILEE K 788.41 Urinary Frequency 03/20/2010 CARRASCO DO, MARILEE K 788.63 Urinary Urgency 03/20/2010 CARRASCO DO, MARILEE K 599.0 Urinary Tract Infection 03/20/2010 CARRASCO DO, MARILEE K 788.41 Urinary Frequency 03/20/2010 CARRASCO DO, MARILEE K 788.63 Urinary Urgency 03/20/2010 CARRASCO DO, MARILEE K 599.0 Urinary Tract Infection 03/20/2010 CARRASCO DO, MARILEE K 788.41 Urinary Frequency 03/20/2010 CARRASCO DO, MARILEE K 788.63 Urinary Urgency 03/20/2010 MAGY LOUVER MORTISER OPERATOR, VELMA A 599.0 Urinary Tract Infection 03/20/2010 MAGY LOUVER MORTISER OPERATOR, VELMA A 788.41 Urinary Frequency 03/20/2010 MAGY LOUVER MORTISER OPERATOR, VELMA A 788.63 Urinary Urgency 03/20/2010 MAGY LOUVER MORTISER OPERATOR, VELMA A 599.0 Urinary Tract Infection 03/20/2010 MAGY LOUVER MORTISER OPERATOR, VELMA A 788.41 Urinary Frequency 03/20/2010 MAGY LOUVER MORTISER OPERATOR, VELMA A 788.63 Urinary Urgency 03/20/2010 CARRASCO DO, MARILEE K 599.0 Urinary Tract Infection 03/20/2010 CARRASCO DO, MARILEE K 788.41 Urinary Frequency 03/20/2010 CARRASCO DO, MARILEE K 788.63 Urinary Urgency 03/20/2010 CARRASCO DO, MARILEE K 599.0 Urinary Tract Infection 03/20/2010 CARRASCO DO, MARILEE K 788.41 Urinary Frequency 03/20/2010 CARRASCO DO, MARILEE K 788.63 Urinary Urgency 03/20/2010 RAS LOUVER MORTISER OPERATOR, CATALINA T 599.0 Urinary Tract Infection 03/20/2010 RAS LOUVER MORTISER OPERATOR, CATALINA T 788.41 Urinary Frequency 03/20/2010 RAS LOUVER MORTISER OPERATOR, CATALINA T 788.63 Urinary Urgency 08/18/2010 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 08/18/2010 V72.31 Pelvic Exam (Internal) 08/18/2010 CARRASCO DO, MARILEE K 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 08/18/2010 CARRASCO DO, MARILEE K V72.31 Pelvic Exam (Internal) 08/18/2010 CARRASCO DO, MARILEE K 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 08/18/2010 CARRASCO DO, MARILEE K V72.31 Pelvic Exam (Internal) 08/18/2010 CARRASCO DO, MARILEE K 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 08/18/2010 CARRASCO DO, MARILEE K V72.31 Pelvic Exam (Internal) 08/18/2010 CARRASCO DO, MARILEE K 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 08/18/2010 CARRASCO DO, MARILEE K V72.31 Pelvic Exam (Internal) 08/18/2010 MAGY LOUVER MORTISER OPERATOR, VELMA A 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 08/18/2010 MAGY LOUVER MORTISER OPERATOR, VELMA A V72.31 Pelvic Exam (Internal) 08/18/2010 MAGY LOUVER MORTISER OPERATOR, VELMA A 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 08/18/2010 MAGY LOUVER MORTISER OPERATOR, VELMA A V72.31 Pelvic Exam (Internal) 08/18/2010 CARRASCO DO, MARILEE K 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 08/18/2010 CARRASCO DO, MARILEE K V72.31 Pelvic Exam (Internal) 08/18/2010 CARRASCO DO, MARILEE K 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 08/18/2010 CARRASCO DO, MARILEE K V72.31 Pelvic Exam (Internal) 08/18/2010 CATALINA MCGINNIS APRN 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 08/18/2010 CATALINA MCGINNIS APRN V72.31 Pelvic Exam (Internal) 11/13/2010 709.8 OTHER SPECIFIED DISORDERS OF SKIN 11/13/2010 CARRASCO DO, MARILEE K 709.8 OTHER SPECIFIED DISORDERS OF SKIN 11/13/2010 CARRASCO DO, MARILEE K 709.8 OTHER SPECIFIED DISORDERS OF SKIN 11/13/2010 CARRASCO DO, MARILEE K 709.8 OTHER SPECIFIED DISORDERS OF SKIN 11/13/2010 CARRASCO DO, MARILEE K 709.8 OTHER SPECIFIED DISORDERS OF SKIN 11/13/2010 MAGY LOUVER MORTISER OPERATOR, VELMA A 709.8 OTHER SPECIFIED DISORDERS OF SKIN 11/13/2010 MAGY LOUVER MORTISER OPERATOR VELMA A 709.8 OTHER SPECIFIED DISORDERS OF SKIN 11/13/2010 CARRASCO DO, MARILEE K 709.8 OTHER SPECIFIED DISORDERS OF SKIN 11/13/2010 CARRASCO DO, MARILEE K 709.8 OTHER SPECIFIED DISORDERS OF SKIN 11/13/2010 CATALINA MCGINNIS APRN 709.8 OTHER SPECIFIED DISORDERS OF SKIN 12/16/2010 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 12/16/2010 705.83 Hidradenitis 12/16/2010 708.0 ALLERGIC URTICARIA 12/16/2010 CARRASCO DO, MARILEE K 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 12/16/2010 CARRASCO DO, MARILEE K 705.83 Hidradenitis 12/16/2010 CARRASCO DO, MARILEE K 708.0 ALLERGIC URTICARIA 12/16/2010 CARRASCO DO, MARILEE K 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 12/16/2010 CARRASCO DO, MARILEE K 705.83 Hidradenitis 12/16/2010 CARRASCO DO, MARILEE K 708.0 ALLERGIC URTICARIA 12/16/2010 CARRASCO DO, MARILEE K 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 12/16/2010 CARRASCO DO, MARILEE K 705.83 Hidradenitis 12/16/2010 CARRASCO DO, MARILEE K 708.0 ALLERGIC URTICARIA 12/16/2010 CARRASCO DO, MARILEE K 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 12/16/2010 CARRASCO DO, MARILEE K 705.83 Hidradenitis 12/16/2010 CARRASCO DO, MARILEE K 708.0 ALLERGIC URTICARIA 12/16/2010 MAGY LOUVER MORTISER OPERATOR, VELMA A 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 12/16/2010 MAGY LOUVER MORTISER OPERATOR, VELMA A 705.83 Hidradenitis 12/16/2010 MAGY LOUVER MORTISER OPERATOR, VELMA A 708.0 ALLERGIC URTICARIA 12/16/2010 MAGY LOUVER MORTISER OPERATOR, VELMA A 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 12/16/2010 MAGY LOUVER MORTISER OPERATOR, VELMA A 705.83 Hidradenitis 12/16/2010 MAGY LOUVER MORTISER OPERATOR, VELMA A 708.0 ALLERGIC URTICARIA 12/16/2010 CARRASCO DO, MARILEE K 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 12/16/2010 CARRASCO DO, MARILEE K 705.83 Hidradenitis 12/16/2010 CARRASCO DO, MARILEE K 708.0 ALLERGIC URTICARIA 12/16/2010 CARRASCO DO, MARILEE K 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 12/16/2010 CARRASCO DO, MARILEE K 705.83 Hidradenitis 12/16/2010 CARRASCO DO, MARILEE K 708.0 ALLERGIC URTICARIA 12/16/2010 CATALINA MCGINNIS APRN 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 12/16/2010 CATALINA MCGINNIS APRN 705.83 Hidradenitis 12/16/2010 CATALINA MCGINNIS APRN 708.0 ALLERGIC URTICARIA 10/23/2011 133.0 Scabies 10/23/2011 CARRASCO DO, MARILEE K 133.0 Scabies 10/23/2011 CARRASCO DO, MARILEE K 133.0 Scabies 10/23/2011 CARRASCO DO, MARILEE K 133.0 Scabies 10/23/2011 CARRASCO DO, MARILEE K 133.0 Scabies 10/23/2011 AMGY LOUVER MORTISER OPERATOR, VELMA A 133.0 Scabies 10/23/2011 MAGY LOUVER MORTISER OPERATOR, VELMA A 133.0 Scabies 10/23/2011 CARRASCO DO, MARILEE K 133.0 Scabies 10/23/2011 CARRASCO DO, MARILEE K 133.0 Scabies 10/23/2011 CATALINA MCGINNIS APRN 133.0 Scabies 10/28/2011 V25.01 CONTRACEPTION - ORAL CONTRACEPTION 10/28/2011 V76.10 BREAST CANCER SCREENING 10/28/2011 CARRASCO DO, MARILEE K V25.01 CONTRACEPTION - ORAL CONTRACEPTION 10/28/2011 CARRASCO DO, MARILEE K V76.10 BREAST CANCER SCREENING 10/28/2011 CARRASCO DO, MARILEE K V25.01 CONTRACEPTION - ORAL CONTRACEPTION 10/28/2011 CARRASCO DO, MARILEE K V76.10 BREAST CANCER SCREENING 10/28/2011 CARRASCO DO, MARILEE K V25.01 CONTRACEPTION - ORAL CONTRACEPTION 10/28/2011 CARRASCO DO, MARILEE K V76.10 BREAST CANCER SCREENING 10/28/2011 CARRASCO DO, MARILEE K V25.01 CONTRACEPTION - ORAL CONTRACEPTION 10/28/2011 CARRASCO DO, MARILEE K V76.10 BREAST CANCER SCREENING 10/28/2011 MAGY LOUVER MORTISER OPERATOR, VELMA A V25.01 CONTRACEPTION - ORAL CONTRACEPTION 10/28/2011 MAGY LOUVER MORTISER OPERATOR, VELMA A V76.10 BREAST CANCER SCREENING 10/28/2011 MAGY LOUVER MORTISER OPERATOR, VELMA A V25.01 CONTRACEPTION - ORAL CONTRACEPTION 10/28/2011 MAGY LOUVER MORTISER OPERATOR, VELMA A V76.10 BREAST CANCER SCREENING 10/28/2011 CARRASCO DO, MARILEE K V25.01 CONTRACEPTION - ORAL CONTRACEPTION 10/28/2011 CARRASCO DO, MARILEE K V76.10 BREAST CANCER SCREENING 10/28/2011 CARRASCO DO, MARILEE K V25.01 CONTRACEPTION - ORAL CONTRACEPTION 10/28/2011 CARRASCO DO, MARILEE K V76.10 BREAST CANCER SCREENING 10/28/2011 CATALINA MCGINNIS APRN V25.01 CONTRACEPTION - ORAL CONTRACEPTION 10/28/2011 CATALINA MCGINNIS APRN V76.10 BREAST CANCER SCREENING 12/09/2011 133.0 SCABIES 12/09/2011 CARRASCO DO, MAIRLEE K 133.0 SCABIES 12/09/2011 CARRASCO DO, MARILEE K 133.0 SCABIES 12/09/2011 CARRASCO DO, MARILEE K 133.0 SCABIES 12/09/2011 CARRASCO DO, MARILEE K 133.0 SCABIES 12/09/2011 MAGY LOUVER MORTISER OPERATOR, VELMA A 133.0 SCABIES 12/09/2011 MAGY LOUVER MORTISER OPERATOR, VELMA A 133.0 SCABIES 12/09/2011 CARRASCO DO, MARILEE K 133.0 SCABIES 12/09/2011 CARRASCO DO, MARILEE K 133.0 SCABIES 12/09/2011 RAS LOUVER MORTISER OPERATOR, CATALINA T 133.0 SCABIES 11/16/2012 CARRASCO DO, MARILEE K 110.1 DERMATOPHYTOSIS OF NAIL 11/16/2012 CARRASCO DO, MARILEE K 700 CORNS AND CALLOSITIES 11/16/2012 CARRASCO DO, MARILEE K V58.69 MEDICATION HIGH RISK 11/16/2012 CARRASCO DO, MARILEE K V73.81 HPV SCREENING 11/16/2012 CARRASCO DO, MARILEE K V76.2 CERVICAL CANCER SCREENING (PAP SMEAR) 11/16/2012 CARRASCO DO, MARILEE K 110.1 DERMATOPHYTOSIS OF NAIL 11/16/2012 CARRASCO DO, MARILEE K 700 CORNS AND CALLOSITIES 11/16/2012 CARRASCO DO, MARILEE K V58.69 MEDICATION HIGH RISK 11/16/2012 CARRASCO DO, MARILEE K V73.81 HPV SCREENING 11/16/2012 CARRASCO DO, MARILEE K V76.2 CERVICAL CANCER SCREENING (PAP SMEAR) 11/16/2012 CARRASCO DO, MARILEE K 110.1 DERMATOPHYTOSIS OF NAIL 11/16/2012 CARRASCO DO, MARILEE K 700 CORNS AND CALLOSITIES 11/16/2012 CARRASCO DO, MARILEE K V58.69 MEDICATION HIGH RISK 11/16/2012 CARRASCO DO, MARILEE K V73.81 HPV SCREENING 11/16/2012 CARRASCO DO, MARILEE K V76.2 CERVICAL CANCER SCREENING (PAP SMEAR) 11/16/2012 CARRASCO DO, MARILEE K 110.1 DERMATOPHYTOSIS OF NAIL 11/16/2012 CARRASCO DO, MARILEE K 700 CORNS AND CALLOSITIES 11/16/2012 CARRASCO DO, MARILEE K V58.69 MEDICATION HIGH RISK 11/16/2012 CARRASCO DO, MARILEE K V73.81 HPV SCREENING 11/16/2012 CARRASCO DO, MARILEE K V76.2 CERVICAL CANCER SCREENING (PAP SMEAR) 11/16/2012 MAGY CAZARESVELMA Adames A 110.1 DERMATOPHYTOSIS OF NAIL 11/16/2012 MAGY CAZARESZacarias VELMA A 700 CORNS AND CALLOSITIES 11/16/2012 MAGY CAZARESVELMA Adames A V58.69 MEDICATION HIGH RISK 11/16/2012 MAGY LOUVER MORTISER OPERATORCARLEEN AdamesIDI A V73.81 HPV SCREENING 11/16/2012 MAGY LOUVER MORTISER OPERATOR, VELMA A V76.2 CERVICAL CANCER SCREENING (PAP SMEAR) 11/16/2012 MAGY CAZARESVELMA Adames A 110.1 DERMATOPHYTOSIS OF NAIL 11/16/2012 MAGY CAZARESCARLEEN AdamesIDI A 700 CORNS AND CALLOSITIES 11/16/2012 MAGY LOUVER MORTISER OPERATOR, VELMA A V58.69 MEDICATION HIGH RISK 11/16/2012 MAGY LOUVER MORTISER OPERATOR, VELMA A V73.81 HPV SCREENING 11/16/2012 MAGY LOUVER MORTISER OPERATORCARLEEN AdamesIDI A V76.2 CERVICAL CANCER SCREENING (PAP SMEAR) 11/16/2012 CARRASCO DO, MARILEE K 110.1 DERMATOPHYTOSIS OF NAIL 11/16/2012 CARRASCO DO, MARILEE K 700 CORNS AND CALLOSITIES 11/16/2012 CARRASCO DO, MARILEE K V58.69 MEDICATION HIGH RISK 11/16/2012 CARRASCO DO, MARILEE K V73.81 HPV SCREENING 11/16/2012 CARRASCO DO, MARILEE K V76.2 CERVICAL CANCER SCREENING (PAP SMEAR) 11/16/2012 CARRASCO DO, MARILEE K 110.1 DERMATOPHYTOSIS OF NAIL 11/16/2012 CARRASCO DO, MARILEE K 700 CORNS AND CALLOSITIES 11/16/2012 CARRASCO DO, MARILEE K V58.69 MEDICATION HIGH RISK 11/16/2012 CARRASCO DO, MARILEE K V73.81 HPV SCREENING 11/16/2012 CARRASCO DO, MARILEE K V76.2 CERVICAL CANCER SCREENING (PAP SMEAR) 11/16/2012 CATALINA MCGINNIS APRN 110.1 DERMATOPHYTOSIS OF NAIL 11/16/2012 CATALINA MCGINNIS APRN 700 CORNS AND CALLOSITIES 11/16/2012 CATALINA MCGINNIS APRN V58.69 MEDICATION HIGH RISK 11/16/2012 CATALINA MCGINNIS APRN V73.81 HPV SCREENING 11/16/2012 CATALINA MCGINNIS APRN V76.2 CERVICAL CANCER SCREENING (PAP SMEAR) 11/20/2012 CARRASCO DO, MARILEE K 285.9 ANEMIA 11/20/2012 CARRASCO DO, MARILEE K 285.9 ANEMIA 11/20/2012 CARRASCO DO, MARILEE K 285.9 ANEMIA 11/20/2012 CARRASCO DO, MARILEE K 285.9 ANEMIA 11/20/2012 MAGY APRN, VELMA A 285.9 ANEMIA 11/20/2012 MAGY LOUVER MORTISER OPERATOR, VELMA A 285.9 ANEMIA 11/20/2012 CARRASCO DO, MARILEE K 285.9 ANEMIA 11/20/2012 CARRASCO DO, MARILEE K 285.9 ANEMIA 11/20/2012 CATALINA MCGINNIS APRN 285.9 ANEMIA 03/29/2014 MAGYCOREEN LINO VELMA A V25.9 CONTRACEPTION MANAGEMENT 03/29/2014 CARRASCO DO, MARILEE K V25.9 CONTRACEPTION MANAGEMENT 03/29/2014 CARRASCO DO, MARILEE K V25.9 CONTRACEPTION MANAGEMENT 03/29/2014 CATALINA MCGINNIS APRN V25.9 CONTRACEPTION MANAGEMENT 12/26/2014 CATALINA MCGINNIS APRN V72.62 LAB SCREENING- GENERAL PHYSICAL 01/15/2015 CATALINA MCGINNIS APRN 078.10 WARTS Procedures Code [place] [address] ROUTINE VENIPUNCTURE 11/16/2012 52318 LESION DESTRUCTION 1-14 (BENIGN) 11/16/2012 Q0091 PAP SMEAR OBTAIN SMEAR 11/16/2012 75531 CBC 11/16/2012 63183 CMP 11/16/2012 8824518 GFR CALC (RESULT ONLY) 11/16/2012 46482 PAP SMEAR 2012 [id number] GYNECOLOGIC ADDENDUM REPORT (RESULT ONLY) 11/21/2012 13064 ROUTINE VENIPUNCTURE 11/22/2012 ANEMIAANA ANEMIA ANALYZER 11/22/2012 59117 CBC 11/23/2012 08545 RETICULOCYTE COUNT 11/23/2012 [id number] IMMATURE PLATELET FRACTION (RESULT ONLY) 11/23/2012 [id number] HEMATOLOGY OTHER REPORT 11/23/2012 52941 VIT B 12 2012 65908 FOLATE 2012 51920 ROUTINE VENIPUNCTURE 12/28/2012 46311 LIVER PANEL (LFT) 12/28/2012 26807 CBC 12/28/2012 18300 ROUTINE VENIPUNCTURE 03/28/2013 37014 CBC 03/28/2013 02778 TEST, URINE (IN-HOUSE) 03/29/2014 J1050 DEPO PROVERA 03321 THERAPUTIC INJ SQ/IM 03/29/2014 J1050 DEPO PROVERA 07/2014 90950 TEST, URINE (IN-HOUSE) 06/16/2014 56494 THERAPUTIC INJ SQ/IM 06/16/2014 08616 TEST, URINE (IN-HOUSE) 09/10/2014 J1050 DEPO PROVERA 01/2014 39007 THERAPUTIC INJ SQ/IM 09/10/2014 34760 WART DESTRUCT 1-14 (CRYO) 02/12/2015 Results Encounters ACCT No. Visit Date/Time Discharge Status Pt. Type Provider Facility Loc./Unit Complaint [id number] 02/12/2015 15:05:00 02/12/2015 23: 59:59 CLS Outpatient CATALINA MCGINNIS APRN [id number] 09/10/2014 13:38:00 09/10/2014 23: 59:59 CLS Outpatient MARILEE CARARSCO DO [id number] 06/16/2014 12:24:00 06/16/2014 23: 59:59 CLS Outpatient MARILEE CARRASCO DO [id number] 03/29/2014 14:54:00 03/29/2014 23: 59:59 CLS Outpatient VELMA BHATTI APRN [id number] 12/05/2013 11:30:00 12/05/2013 23: 59:59 CLS Outpatient VELMA BHATTI APRN [id number] 03/28/2013 10:40:00 03/28/2013 23: 59:59 CLS Outpatient MARILEE CARRASCO DO [id number] 12/28/2012 13:05:00 12/28/2012 23: 59:59 CLS Outpatient MARILEE CARRASCO DO [id number] 11/22/2012 11:43:00 11/22/2012 23: 59:59 CLS Outpatient MARILEE CARRASCO DO [id number] 11/16/2012 10:19:00 11/16/2012 23: 59:59 [place] [id number] 12/09/2011 14:47:00 12/09/2011 23: 59:59 CLS Outpatient
[2017-10-17] MEDS ORDERED: NS IV 1000 ML 1,000 ML ONE (04:57)
[2017-10-17 05:49] VITALS: BP 95/54
[2017-10-17] MEDS ORDERED: CATHETER FLUSH 10 ML SYR IV PRN (06:00)
[2017-10-17] MEDS ORDERED: fentaNYL INJECTION 100 MCG/2 ML AMP IV PRN (06:00)
[2017-10-17] MEDS ORDERED: ONDANSETRON 4 MG/2 ML (SDV) Z0FRAN IV PRN (06:00)
[2017-10-17] MEDS: CATHETER FLUSH 10 ML SYR IV SCH ×2 (06:46→12:26)
[2017-10-17] MEDS: NS IV 1000 ML 1,000 ML IV SCH ×2 (06:46→14:31)
--- NOTE | 2017-10-17 07:17 | Diagnostic Imaging Report ---
PROCEDURE: CT urinary tract, rule out kidney stone. TECHNIQUE: Multiple contiguous axial images were obtained through the abdomen and pelvis without the use of intravenous contrast. INDICATION: Bilateral flank pain. COMPARISON: None. FINDINGS: Lung bases are clear. The liver, gallbladder, pancreas, spleen, adrenals, collecting systems and bladder are negative on this noncontrast exam. Mild medullary hyperattenuation in both kidneys. No renal stones. Negative appendix. Small amount of free fluid in the pelvis. No free intraperitoneal air. No lymphadenopathy. No evidence of bowel obstruction. Osseous structures are unremarkable. IMPRESSION: 1. No acute CT findings in the abdomen or pelvis. 2. 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 3. Small amount of free fluid in the pelvis is likely physiologic. Dictated by: Dictated on workstation # [id number]
[2017-10-17] MEDS ORDERED: INFLUENZA TRIvalent 2017-2018 0.5 ML/45 MCG SYR IM ONE ×2 (07:30→18:15)
--- NOTE | 2017-10-17 07:31 | Diagnostic Imaging Report ---
EXAM: CHEST 1 VIEW, AP/PA ONLY INDICATION: Bilateral flank pain. COMPARISON: None. FINDINGS: Normal heart size and pulmonary vascularity. No focal pulmonary opacity, pleural effusion or pneumothorax. Osseous structures are unremarkable. IMPRESSION: No acute cardiopulmonary findings. Dictated by: Dictated on workstation # [id number]
[2017-10-17 08:00] VITALS: BP 91/51
[2017-10-17] MEDS ORDERED: NS IV 1000 ML 1,000 ML IV SCH (11:45)
--- NOTE | 2017-10-17 11:46 | History & Physicial ([facility]) ---
HPI History of Present Illness: Pt presented to ED last night with some burning on urination and some back pain that she rated 2/10. She was found to be febrile with a temp of 101.6 in triage. 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 Source: patient, RN/MD, RN notes reviewed Exam Limitations: no limitations Date seen by provider: Oct 17, 2017 Time Seen by Provider: 16:15 Attending Physician Hetal Crow DO PCP No,Local Physician Consult Date of Admission Oct 17, 2017 at 04:20 Home Medications Home Medications Reviewed patient Home Medication Reconciliation Form Allergies Coded Allergies: No Known Drug Allergies (Verified , 04/17/09) RSR-Ljggal-Rkrxyi Hx Patient Social History Marrital Status: Number of Children: 3 Number of living children: 3 Living Status: lives with family Alcohol Use: Denies Use Recreational Drug Use: No Smoking Status: Never a Smoker Recent Foreign Travel: No Contact w/other who traveled: No Recent Hopitalizations: No Recent Infectious Disease Expo: No Physical Abuse Screen: No Sexual Abuse: No Immunizations Up To Date Tetanus Booster (TDap): Less than 5yrs Past Medical History denies PMH childbirth herpes Family Medical History Significant Family History: No Pertinent Family Hx Family History: Patient reports no known family medical history. Review of Systems ([facility]) Constitutional: no symptoms reported EENTM: see HPI Respiratory: no symptoms reported Cardiovascular: no symptoms reported Gastrointestinal: no symptoms reported Genitourinary: dysuria (last night, now resolved) : No Musculoskeletal: no symptoms reported, back pain (back pain now resolved) Skin: no symptoms reported Psychiatric/Neurological: No Symptoms Reported Reviewed Test Results Reviewed Test Results Lab Microbiology 10/17/17 Blood Culture - Preliminary, Resulted No growth 10/17/17 Blood Culture - Preliminary, Resulted No growth 10/17/17 Urine Culture - Preliminary, Resulted Escherichia Coli Laboratory Tests 10/17/17 02:25: Lactic Acid Level 1.19 Laboratory Tests Test 10/17/17 02:00 10/17/17 02:25 Range/Units White Blood Count 4.1 L 4.3-11.0 10^3/uL Red Blood Count 4.34 L 4.35-5.85 10^6/uL Hemoglobin 12.4 11.5-16.0 G/DL Hematocrit 37 35-52 % Mean Corpuscular Volume 85 80-99 FL Mean Corpuscular Hemoglobin 29 25-34 PG Mean Corpuscular Hemoglobin Concent 34 32-36 G/DL Red Cell Distribution Width 13.7 10.0-14.5 % Platelet Count 203 130-400 10^3/uL Mean Platelet Volume 11.1 H 7.4-10.4 FL Neutrophils (%) (Auto) 91 H 42-75 % Lymphocytes (%) (Auto) 8 L 12-44 % Monocytes (%) (Auto) 1 0-12 % Eosinophils (%) (Auto) 1 0-10 % Basophils (%) (Auto) 0 0-10 % Neutrophils # (Auto) 3.7 1.8-7.8 X 10^3 Lymphocytes # (Auto) 0.3 L 1.0-4.0 X 10^3 Monocytes # (Auto) 0.0 0.0-1.0 X 10^3 Eosinophils # (Auto) 0.0 0.0-0.3 10^3/uL Basophils # (Auto) 0.0 0.0-0.1 10^3/uL Neutrophils % (Manual) 84 % Lymphocytes % (Manual) 6 % Monocytes % (Manual) 0 % Eosinophils % (Manual) 0 % Basophils % (Manual) 0 % Band Neutrophils 8 % Reactive Lymphocytes 2 % Toxic Granulation 1+ Elliptocytes MODERATE Prothrombin Time 13.6 12.2-14.7 SEC INR Comment 1.0 0.8-1.4 Activated Partial Thromboplast Time 25 24-35 SEC Urine Color YELLOW Urine Clarity SLIGHTLY CLOUDY Urine pH 8 5-9 Urine Specific [place] 1.010 L 1.016-1.022 Urine Protein 1+ H NEGATIVE Urine Glucose (UA) NEGATIVE NEGATIVE Urine Ketones NEGATIVE NEGATIVE Urine Nitrite POSITIVE H NEGATIVE Urine Bilirubin NEGATIVE NEGATIVE Urine Urobilinogen 4 H NORMAL MG/DL Urine Leukocyte Esterase 1+ H NEGATIVE Urine RBC (Auto) 3+ H NEGATIVE Urine RBC 2-5 H /HPF Urine WBC 2-5 /HPF Urine Squamous Epithelial Cells 2-5 /HPF Urine Crystals NONE /LPF Urine Bacteria LARGE H /HPF Urine Casts NONE /LPF Urine Mucus NEGATIVE /LPF Urine Culture Indicated YES Sodium Level 139 135-145 MMOL/L Potassium Level 3.2 L 3.6-5.0 MMOL/L Chloride Level 104 98-107 MMOL/L Carbon Dioxide Level 24 21-32 MMOL/L Anion Gap 11 5-14 MMOL/L Blood Urea Nitrogen 12 7-18 MG/DL Creatinine 0.77 0.60-1.30 MG/DL Estimat Glomerular Filtration Rate > 60 BUN/Creatinine Ratio 16 Glucose Level 132 H 70-105 MG/DL Calcium Level 9.2 8.5-10.1 MG/DL Total Bilirubin 0.5 0.1-1.0 MG/DL Aspartate Amino Transf (AST/SGOT) 46 H 5-34 U/L Alanine Aminotransferase (ALT/SGPT) 23 0-55 U/L Alkaline Phosphatase 87 40-136 U/L Total Protein 7.9 6.4-8.2 GM/DL Albumin 4.3 3.2-4.5 GM/DL Lactic Acid Level 1.19 0.50-2.00 MMOL/L Radiology CT Abdomen: 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 Physical Exam-([facility]) Physical Exam Vital Signs VS - Last 72 Hours, by Label 10/17/17 10/17/17 10/17/17 10/17/17 01:55 02:30 03:00 03:30 Temp 101.6 101.6 101.3 100.5 Pulse 86 86 96 89 Resp 20 18 18 18 B/P (MAP) 115/94 (101) 115/94 112/72 104/70 Pulse Ox 99 98 99 98 O2 Delivery Room Air Room Air Room Air Room Air 10/17/17 10/17/17 10/17/17 10/17/17 04:00 04:30 04:44 05:49 Temp 100.3 99.9 99.1 Pulse 16 84 76 75 Resp 18 18 20 B/P (MAP) 100/63 95/67 95/54 (68) Pulse Ox 99 99 99 94 O2 Delivery Room Air Room Air Room Air Room Air 10/17/17 10/17/17 10/17/17 10/17/17 08:00 12:00 15:30 15:42 Temp 98.9 97.8 98.2 Pulse 86 73 139 70 Resp 18 20 20 B/P (MAP) 91/51 (64) 106/69 (81) 100/55 (70) Pulse Ox 96 98 97 O2 Delivery Room Air Room Air Room Air Capillary Refill : Less Than 3 Seconds General Appearance: WD/WN, no apparent distress Eyes: Bilateral Eye Normal Inspection, Bilateral Eye PERRL, Bilateral Eye EOMI HEENT: normal ENT inspection, No scleral icterus (R), No scleral icterus (L), No pale conjunctivae (R), No pale conjunctivae (L), No photophobia Neck: non-tender, full range of motion, supple, normal inspection Respiratory: chest non-tender, lungs clear, normal breath sounds, no respiratory distress, no accessory muscle use Cardiovascular: normal peripheral pulses, regular rate, rhythm, no edema, systolic murmur (II/ - pt reports no history of previous murmur) Peripheral Pulses: 2+ Dorsalis Pedis (R), 2+ Left Dors-Pedis (L), 2+ Radial Pulses (R), 2+ Radial Pulses (L) Gastrointestinal: normal bowel sounds, non tender, soft, no organomegaly, no pulsatile mass Back: normal inspection, no CVA tenderness, no vertebral tenderness Extremities: normal range of motion, non-tender, normal inspection, no pedal edema, no calf tenderness Neurologic/Psychiatric: shoe planner II-XII nml as tested, no motor/sensory deficits, alert, normal mood/affect, oriented x 3 Skin: normal color, warm/dry Lymphatic: no adenopathy Clinical Quality Measures DVT/VTE Risk/Contraindication: Risk Factor Score Per Nursin RFS Level Per Nursing on Admit: 2=Moderate Assessment/Plan Assessment/Plan Admission Dx Acute Urinary Tract Infection Fever Plan Acute Urinary Tract Infection -pt received 1 dose of IV rocephin in ED and a fluid bolus this morning -no further back pain or dysuria and patient is requesting discharge -urine culture shows ecoli, sensitivities pending -will treat with 1 additional gram of rocephin tonight and discharge to home after abx -PO Bactrim BID x7 days to be sent to [facility] [address]; will notify patient if needs antibiotic change when sensitivities are returned Fever -now resolved Plan: Discharge to home after 1 dose abx now, pt to last picker PO abx in AM. HETAL CROW DO Oct 17, 2017 11:46
[2017-10-17 12:00] VITALS: BP 106/69
[2017-10-17 15:30] VITALS: BP 100/55
[2017-10-17] MEDS ORDERED: cefTRIAXone INJECTION 1,000 MG in NS (IVPB) 50 ML IV NR ×2 (16:00→16:45)
[2017-10-17] MEDS ORDERED: SULF1TAB35 PO (16:48)
--- NOTE | 2017-10-17 16:52 | Discharge Instructions ---
Discharge [facility] Discharge Medications New, Converted or Re-Newed RX: Transmitted to Pharmacy New Medications: Sulfamethoxazole/Trimethoprim (Bactrim Ds Tablet) 1 Each Tablet 1 EACH PO BID WITH MEALS for 7 Days, #14 TAB 0 Refills Patient Instructions Patient Instructions Take antibiotics as directed - one tab with meals twice daily until gone Call office if develop yeast infection while taking antibiotics Avoid carbonated or caffeine Avoid bubble baths Wipe front to back Void after intercourse Drink plenty of water Goal/Follow Up Appt: follow up with provider of choice in 1 week, sooner if symptoms do not improve with medication; may take Tylenol or Ibuprofen for discomfort or fever Patient Instructions: follow up with provider of choice in 1 week, sooner if symptoms do not improve with medication; may take Tylenol or Ibuprofen for discomfort or fever Return to The Hospital For: Severe pain uncontrolled by medication, nausea or vomiting that makes it unable for you to keep down medication or ice chips, fever >101 for more than 2 days despite tylenol or ibuprofen use, or other emergent concerns Activity & Diet Discharge Diet: No Restrictions Activity as Tolerated: Yes MICHELLE CROW DO Oct 17, 2017 16:52
--- NOTE | 2017-10-17 17:01 | Discharge Summary ---
Diagnosis/Chief Complaint Date of Admission Oct 17, 2017 at 04:20 Date of Discharge 10/17/17 Admission Diagnosis Admission Diagnosis Acute Urinary Tract Infection, Fever Discharge Diagnosis Acute Urinary Tract Infection due to e coli bacteria Fever - now resolved Chief Complaint/HPI Chief Complaint/HPI Pt presented to ED last night with some burning on urination and some back pain that she rated 2/10. She was found to be febrile with a temp of 101.6 in triage. 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 Discharge Summary-Simple/Stand Consultations Discharge Physical Examination Allergies: Coded Allergies: No Known Drug Allergies (Verified , 04/17/09) Vitals & I&Os Vital Sign - Last 12Hours Date Time Temp Pulse Resp B/P (MAP) Pulse Ox O2 Delivery O2 Flow Rate FiO2 10/17/17 15:42 70 10/17/17 15:30 98.2 20 100/55 (70) 97 Room Air General Appearance: Alert, Oriented X3, Cooperative, No Acute Distress HEENT: Atraumatic, PERRLA, EOMI, Mucous Memb Moist/[place] Respiratory: Clear to Auscultation, Normal Air Movement Cardiovascular: Regular Rate, Normal S1, Normal S2, Other (II/ systolic murmur) Abdominal: Normal Bowel Sounds, Soft, No Tenderness, No Hepatosplenomegaly, No Masses Extremities: No Clubbing, No Cyanosis, No Edema, Normal Pulses, No Tenderness/ Swelling Skin: No Rashes, No Breakdown, No Significant Lesion Neuro: Normal Speech, Strength at 5/5 X4 Ext, Normal Tone, Sensation Intact, Cranial Nerves 3-12 NL Psych/Mental Status: Mental Status NL, Mood NL Hospital Course See final discharge diagnosis. Labs Microbiology 10/17/17 Blood Culture - Preliminary, Resulted No growth 10/17/17 Blood Culture - Preliminary, Resulted No growth 10/17/17 Urine Culture - Preliminary, Resulted Escherichia Coli Laboratory Tests Test 10/17/17 02:00 10/17/17 02:25 Range/Units White Blood Count 4.1 L 4.3-11.0 10^3/uL Red Blood Count 4.34 L 4.35-5.85 10^6/uL Hemoglobin 12.4 11.5-16.0 G/DL Hematocrit 37 35-52 % Mean Corpuscular Volume 85 80-99 FL Mean Corpuscular Hemoglobin 29 25-34 PG Mean Corpuscular Hemoglobin Concent 34 32-36 G/DL Red Cell Distribution Width 13.7 10.0-14.5 % Platelet Count 203 130-400 10^3/uL Mean Platelet Volume 11.1 H 7.4-10.4 FL Neutrophils (%) (Auto) 91 H 42-75 % Lymphocytes (%) (Auto) 8 L 12-44 % Monocytes (%) (Auto) 1 0-12 % Eosinophils (%) (Auto) 1 0-10 % Basophils (%) (Auto) 0 0-10 % Neutrophils # (Auto) 3.7 1.8-7.8 X 10^3 Lymphocytes # (Auto) 0.3 L 1.0-4.0 X 10^3 Monocytes # (Auto) 0.0 0.0-1.0 X 10^3 Eosinophils # (Auto) 0.0 0.0-0.3 10^3/uL Basophils # (Auto) 0.0 0.0-0.1 10^3/uL Neutrophils % (Manual) 84 % Lymphocytes % (Manual) 6 % Monocytes % (Manual) 0 % Eosinophils % (Manual) 0 % Basophils % (Manual) 0 % Band Neutrophils 8 % Reactive Lymphocytes 2 % Toxic Granulation 1+ Elliptocytes MODERATE Prothrombin Time 13.6 12.2-14.7 SEC INR Comment 1.0 0.8-1.4 Activated Partial Thromboplast Time 25 24-35 SEC Urine Color YELLOW Urine Clarity SLIGHTLY CLOUDY Urine pH 8 5-9 Urine Specific [place] 1.010 L 1.016-1.022 Urine Protein 1+ H NEGATIVE Urine Glucose (UA) NEGATIVE NEGATIVE Urine Ketones NEGATIVE NEGATIVE Urine Nitrite POSITIVE H NEGATIVE Urine Bilirubin NEGATIVE NEGATIVE Urine Urobilinogen 4 H NORMAL MG/DL Urine Leukocyte Esterase 1+ H NEGATIVE Urine RBC (Auto) 3+ H NEGATIVE Urine RBC 2-5 H /HPF Urine WBC 2-5 /HPF Urine Squamous Epithelial Cells 2-5 /HPF Urine Crystals NONE /LPF Urine Bacteria LARGE H /HPF Urine Casts NONE /LPF Urine Mucus NEGATIVE /LPF Urine Culture Indicated YES Sodium Level 139 135-145 MMOL/L Potassium Level 3.2 L 3.6-5.0 MMOL/L Chloride Level 104 98-107 MMOL/L Carbon Dioxide Level 24 21-32 MMOL/L Anion Gap 11 5-14 MMOL/L Blood Urea Nitrogen 12 7-18 MG/DL Creatinine 0.77 0.60-1.30 MG/DL Estimat Glomerular Filtration Rate > 60 BUN/Creatinine Ratio 16 Glucose Level 132 H 70-105 MG/DL Calcium Level 9.2 8.5-10.1 MG/DL Total Bilirubin 0.5 0.1-1.0 MG/DL Aspartate Amino Transf (AST/SGOT) 46 H 5-34 U/L Alanine Aminotransferase (ALT/SGPT) 23 0-55 U/L Alkaline Phosphatase 87 40-136 U/L Total Protein 7.9 6.4-8.2 GM/DL Albumin 4.3 3.2-4.5 GM/DL Lactic Acid Level 1.19 0.50-2.00 MMOL/L Radiology Reviewed CT Abdomen: 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 Pt reports that she would really like to go home tonight if possible. E coli with final sensitivities pending, will treat with 1 gram Rocephin IV x1 prior to discharge and then send rx for Bactrim DS BID x7 days. If abx need to be changed, will contact patient at home number and send new abx script. Patient also informed that she has a heart murmur and encouraged to follow up with provider of choice. Discharge Instructions to patient/family Please see electronic discharge instructions given to patient. Discharge Medications Reviewed and agree with Discharge Medication list on patient's Discharge Instruction sheet Clinical Quality Measures DVT/VTE Risk/Contraindication: Risk Factor Score Per Nursin RFS Level Per Nursing on Admit: 2=Moderate MICHELLE CROW DO Oct 17, 2017 17:01
[2017-10-18] MEDS ORDERED: cefTRIAXone 1 GM/NS 50 ML IVPB IV SCH ×2 (05:00)
== END 2017-10-17 18:40 | disposition home or self-care (01) | DRG 690 ==
LOC: EDUNIT# 01:53 → ER 01:55 → 4TH 04:20
PROVIDERS: ADMIT Family Medicine; ATTEND Family Medicine
DX: N39.0 Urinary tract infection, site not specified (principal); B96.20 Unspecified Escherichia coli [E. coli] as the cause of diseases classified elsewhere; Z23 Encounter for immunization
CPT/HCPCS: 36415; 71010; 74176; 80053; 81000; 83605; 84703; 85007; 85027; 85610; 85730; 87040; 87077; 87088; 87186

== ENCOUNTER → 2018-03-10 | Outpatient (CLI) | payer OTHER ==
[~2018-03-10] MED LIST changes: +SULF1TAB35 PO
--- NOTE | 2018-03-10 12:01 | Diagnostic Imaging Report ---
INDICATION: Abnormal appearance of the kidneys with medullary hyperattenuation on CT imaging, obtained for bilateral flank pain. TECHNIQUE: Multiple real-time grayscale sonographic images were obtained of the kidneys. COMPARISON: CT 10/17/2017 FINDINGS: RIGHT KIDNEY: 9.6 x 3.8 x 4.0 cm. LEFT KIDNEY: 11.2 x 4.8 x 4.1 cm. The kidneys have an unremarkable appearance. There is relatively normal echotexture of the renal parenchyma. No hydronephrosis. URINARY BLADDER: Urinary bladder appearing unremarkable. Left ureteral jet is visualized. Nonvisualization of the right ureteral jet. However no evidence for hydronephrosis or obstruction. IMPRESSION: 1. Unremarkable renal sonogram. Dictated by: Dictated on workstation # [id number]
== END ==
LOC: RAD 10:51
PROVIDERS: ATTEND Nurse Practitioner Family
DX: R93.429 Abnormal radiologic findings on diagnostic imaging of unspecified kidney (principal)
CPT/HCPCS: 76770

== ENCOUNTER → 2020-01-10 | Outpatient (CLI) | payer MEDICAID ==
--- NOTE | 2020-01-10 11:58 | Diagnostic Imaging Report ---
EXAMINATION: Digital mammogram bilateral screening. INDICATION: Screening. COMPARISON: This study was compared to the prior exam of 01/03/2015. At this time, there are no current complaints. The current study was also evaluated with a Computer Aided Detection (CAD) system. 3-D tomosynthesis was also performed and reviewed. FINDINGS: The fibroglandular tissue in both breasts is heterogeneously dense. This does limit the sensitivity of this exam. Overall, there does not appear to have been any significant change when compared to the prior study. No primary or secondary sign of malignancy is noted. 3D tomographic images fail to show any sign of malignancy. IMPRESSION: 1. There is no evidence of malignancy. 2. The patient should have her annual bilateral screening mammogram on schedule in January 2021. ACR BI-RADS Category 1: Negative. Result letter will be mailed to the patient. Note: At least 10% of breast cancer is not imaged by mammography. Dictated by: Dictated on workstation # [id number]
== END ==
LOC: RAD 10:23
PROVIDERS: ATTEND Nurse Practitioner Primary Care
DX: Z12.31 Encounter for screening mammogram for malignant neoplasm of breast (principal)
CPT/HCPCS: 77067

== ENCOUNTER → 2021-02-10 | Outpatient (CLI) | payer MEDICAID ==
--- NOTE | 2021-02-10 15:00 | Diagnostic Imaging Report ---
INDICATION: Routine screening. COMPARISON: 01/10/2020 and 01/03/2015. TECHNIQUE: 2D and 3D bilateral screening mammography was performed with CAD. FINDINGS: Both breasts are heterogeneously dense, limiting the sensitivity of mammography. The parenchymal pattern is stable. No mass or malignant appearing microcalcifications are seen. The axillae are unremarkable. IMPRESSION: No mammographic features suspicious for malignancy are identified. ACR BI-RADS Category 1: Negative. Result letter will be mailed to the patient. Note: At least 10% of breast cancer is not imaged by mammography. Dictated by: Dictated on workstation # [id number]
== END ==
LOC: RAD 08:15
PROVIDERS: ATTEND Nurse Practitioner
DX: Z12.31 Encounter for screening mammogram for malignant neoplasm of breast (principal)
CPT/HCPCS: 77063; 77067